=== PATIENT | female | born 1990 | race Caucasian/White ===

== ENCOUNTER 2023-02-25 10:33 | Emergency (ER) | payer SELFPAY ==
[~2023-02-25] VITALS: Ht 157.5 cm; Wt 72.6 kg
[2023-02-25 10:46] VITALS: BP 124/74; PULSE 78; RESP 18
== END 2023-02-25 11:06 | disposition home or self-care (01) ==
LOC: MED 10:33
DX: Z02.89 Encounter for other administrative examinations (principal)
CPT/HCPCS: 99283